=== PATIENT | female | born 1990 | race American Indian/Alaskan Native ===

== ENCOUNTER 2021-05-03 10:54 | Emergency (ER) | payer MEDICAID ==
[2021-05-03 11:14] VITALS: BP 116/76
[2021-05-03] MEDS ORDERED: FLUORESCEIN 1 MG STRIP OP ONE (11:14)
[2021-05-03] MEDS ORDERED: TETRACAINE 0.5% OPHTH SOLN 4ML OU STA (11:14)
--- NOTE | 2021-05-03 11:17 | Emergency Department Report ---
ED Eye Problem HPI - General Chief complaint: Eye Problems Stated complaint: RT SWOLLEN CLOSED PAIN Time Seen by Provider: 05/03/21 11:14 Source: patient Mode of arrival: Ambulatory Limitations: No Limitations - History of Present Illness Initial comments: 30-year-old female presents to the ER today with complaints of right eye pain and irritation. Patient states that her symptoms started gradually 1 week ago. She reports redness to the eye, increased tearing, pain, blurry vision, and matting and crusting especially in the morning. She denies any particular injury to the eye. She does not wear glasses or contacts. She denies any grinding or welding. She does admit that one of her friends had similar symptoms a few weeks prior but she does not know exactly what was the cause. She states that she has not been sick with any URI symptoms, fever or chills. chief complaint: eye redness, vision change -: week(s) (1) Onset Description: gradual - Related Data Previous Rx's Medication Instructions Recorded Last Taken Type Amoxicillin/Potassium Clav 1 each PO BID #20 tablet 05/03/21 Unknown Rx [Augmentin 875-125 Tablet] Gentamicin 0.3% Ophth Oint 1 applicatio OP TID #1 tube 05/03/21 Unknown Rx Allergies Allergy/AdvReac Type Severity Reaction Status Date / Time No Known Allergies Allergy Unverified 05/03/21 11:11 ED Review of Systems ROS: Stated complaint: RT SWOLLEN CLOSED PAIN Other details as noted in HPI ED Past Medical Hx - Past Medical History Previous Medical History?: No - Surgical History Past Surgical History?: No - Medications Home Medications: Home Medications Medication Instructions Recorded Confirmed Last Taken Type Amoxicillin/Potassium Clav 1 each PO BID #20 tablet 05/03/21 Unknown Rx [Augmentin 875-125 Tablet] Gentamicin 0.3% Ophth Oint 1 applicatio OP TID #1 tube 05/03/21 Unknown Rx ED Physical Exam - General Limitations: No Limitations General appearance: alert, in no apparent distress - Head Head exam: Present: atraumatic, normocephalic, normal inspection - Eye Eye exam: Present: PERRL, EOMI, conjunctival injection (Moderate to the right, with associated mild conjunctival swelling), periorbital swelling (Mild swelling to the right upper lid with very mild redness and tenderness), periorbital tenderness (Mild to the right upper lid). Absent: scleral icterus Pupils: Present: normal accommodation, other (Guerrero lamp exam shows no apparent corneal abrasion, dendritic lesions, ulceration, or any additional fluorescein uptake) - Expanded Eye Exam Expanded Eyelids: Normal Inspection: Left, Laceration: Left, Stye: Left, Erythema: Left, Swelling: Left Anterior chamber: Normal Inspection: Bilateral Posterior chamber: Deferred: Bilateral Visual acuity (R) = 20/: 30 Visual acuity (L) = 20/: 20 (Both eyes 20/20) With correction: No - Neck Neck exam: Present: normal inspection, full ROM. Absent: meningismus - Respiratory Respiratory exam: Absent: respiratory distress - Cardiovascular Cardiovascular Exam: Present: regular rate - Neurological Exam Neurological exam: Present: alert, oriented X3, CN II-XII intact, normal gait - Skin Skin exam: Present: intact ED Course Vital Signs 05/03/21 11:12 Temperature 99.0 F Pulse Rate 86 Respiratory 18 Rate Blood Pressure 116/76 [Right] O2 Sat by Pulse 100 Oximetry ED Medical Decision Making - Medical Decision Making Eye exam is concerning for bacterial conjunctivitis and so she will be started on erythromycin eye ointment but she does have some mild swelling and subtle erythema noted to the left upper eyelid and so she will be covered for possible early preseptal cellulitis with Augmentin. She has no pain with eyeball movement and therefore no concern for orbital cellulitis at this time. Discussed suspected diagnosis and treatment plan with patient. Recommend close follow-up with eyeglass frame truer listed on her discharge instructions especially if her symptoms are not improving or worsening. she can also return here to the ER if her symptoms worsen. Patient expressed understanding of instructions and agree with plan. Patient stable at time of discharge Critical care attestation.: If time is entered above; I have spent that time in minutes in the direct care of this critically ill patient, excluding procedure time. ED Disposition Clinical Impression: Bacterial conjunctivitis of right eye Disposition: 01 HOME / SELF CARE / HOMELESS Is pt being admited?: No Does the pt Need Aspirin: No Condition: Stable Instructions: Bacterial Conjunctivitis, Adult, [id number], How to Use Eye Drops and Eye Ointments Additional Instructions: I Want to use the antibiotic ointment as prescribed. Also take the Augmentin, as this is gone a couple for possible early preseptal cellulitis. Apply warm compresses will also help. Wash your hands before and after touching your eye. This can be very contagious so is important that you wash your hands frequently . Follow-up with the eyeglass frame truer listed on your discharge instructions if symptoms are not improving despite medication or if they are getting worse or return to the ER if they are getting worse. Prescriptions: Amoxicillin/Potassium Clav [Augmentin 875-125 Tablet] 1 each PO BID #20 tablet Gentamicin 0.3% Ophth Oint 1 applicatio OP TID #1 tube Referrals: [facility] [Provider Group] - 7-10 days SLIM JIMENEZ MD [Staff Physician] - 7-10 days Forms: Work/School Release Form(ED) Time of Disposition: 11:37
== END 2021-05-03 12:00 | disposition home or self-care (01) ==
LOC: ED 10:54
DX: H10.31 Unspecified acute conjunctivitis, right eye (principal)
CPT/HCPCS: 99282